=== PATIENT | female | born 1975 | race Caucasian/White ===

== ENCOUNTER 2018-05-31 10:59 | Emergency (ER) | payer MEDICAID ==
[~2018-05-31] VITALS: Ht 162.6 cm; Wt 95.3 kg
[2018-05-31 11:08] VITALS: BP 143/93
--- NOTE | 2018-05-31 11:09 | NUR ---
PT AMBULATED TO ER BED 05
--- NOTE | 2018-05-31 11:23 | NUR ---
42 yo f bib self w/ c/o llq sharp pain, non radiating x yesterday denies n/v/d, no dysuria. denies fever/chills. reports eating/drinking without issue. aaox4. gcs 15. cms intact, rr even and unlabored. lungs clear. abd soft, non-tender to the touch. er md notified. pt needs met. safety precautions inplace. will continue to monitor.
[2018-05-31] MEDS ORDERED: GLYCOPYRROLATE 0.2 MG/ML VIAL IM ONE (11:25)
[2018-05-31] MEDS ORDERED: MORPHINE SULFATE 2 MG/ML SYR IM ONE (11:25)
[2018-05-31] MEDS ORDERED: LACTULOSE 20 GM/30 ML UDC PO ONE (11:25)
--- NOTE | 2018-05-31 11:50 | NUR ---
pt taken to xray at this time via w/c accompanied by 2x safe technician without incident.
--- NOTE | 2018-05-31 12:01 | NUR ---
pt back from xray at this time.
--- NOTE | 2018-05-31 12:08 | NUR ---
pt up for d/c at this time, but labs still need to be drawn. lab called. pt to be d/c after draw. will continue to monitor. safety precautions in place.
[2018-05-31 12:22] LABS: APPEARANCE,URINE CLEAR (CLEAR); BILIRUBIN,URINE NEGATIVE (NEGATIVE); BLOOD, URINE TRACE-I (NEGATIVE); COLOR,URINE YELLOW (YELLOW); LEUKOCYTE ESTERASE ,URINE NEGATIVE (NEGATIVE); NITRITE, URINE NEGATIVE (NEGATIVE); PH,URINE 5.5 (5.0-9.0); UGLUCOSE NEGATIVE (NEGATIVE)
[2018-05-31 12:29] LABS: RBC,URINE 3-10 (FEW) /HPF (0-5); WBC,URINE 6-15 (FEW) /HPF (0-5)
[2018-05-31] MEDS ORDERED: PROMETHAZINE 25 MG/ML VIAL IM ONE (12:30)
[2018-05-31 12:43] LABS: BARBITURATE, URINE NEG. ng/ml (NEG <=200); BENZODIAZEPINE, URINE NEG. ng/mL (NEG <=200); CANNABINOID, URINE NEG. ng/mL (NEG <=50); COCAINE, URINE NEG. ng/mL (NEG <=300); OPIATE, URINE NEG. ng/mL (NEG <=2000); PHENCYCLIDINE SCREEN,URINE NEG. ng/mL (NEG <=25)
--- NOTE | 2018-05-31 12:48 | NUR ---
Patient discharged with v/s stable, blood pressure elevated, but patient reports that is her normal to baseline. Denies dizziness. Written and verbal after care instructions given and explained. Patient alert, oriented and verbalized understanding of instructions. Ambulatory with steady gait. All questions addressed prior to discharge. ID band removed. Patient advised to follow up with PMD. Rx of Levaquin, Colace, and Fioricet given. Patient educated on indication of medication including possible reaction and side effects. Opportunity to ask questions provided and answered.
[2018-05-31 12:49] VITALS: BP 144/98
== END 2018-05-31 12:48 | disposition home or self-care (01) ==
LOC: MED 10:59
DX: N23 Unspecified renal colic (principal); N39.0 Urinary tract infection, site not specified; K59.00 Constipation, unspecified; I10 Essential (primary) hypertension; Z88.6 Allergy status to analgesic agent; Z83.3 Family history of diabetes mellitus; Z98.51 Tubal ligation status
CPT/HCPCS: 74018; 80305; 81001; 81025; 87086; 96372; 99285; J2270; J2550; J3490

== ENCOUNTER 2024-04-10 17:37 | Emergency (ER) | payer MEDICAID, OTHER ==
[~2024-04-10] VITALS: Ht 162.6 cm; Wt 99.8 kg
[2024-04-10 17:43] VITALS: BP 151/93; PULSE 102; RESP 18; TEMP 96.9; O2SAT 98
[2024-04-10 18:46] LABS: BASOPHILS # (AUTO) 0.1 K/uL (0.00-0.22); BASOPHILS % (AUTO) 1.5 % (0.0-2.0); EOSINOPHILS # (AUTO) 0.2 K/uL (0-0.4); EOSINOPHILS % (AUTO) 2.5 % (0.0-4.0); HEMATOCRIT 39.1 % (36-48); HEMOGLOBIN 13.1 g/dL (12.0-16.0); LYMPHOCYTES # (AUTO) 2.1 K/uL (2.5-16.5); LYMPHOCYTES % (AUTO) 25.7 % (20.5-51.1); MEAN CORPUSCULAR HEMOGLOBIN 27 pg (27-31); MEAN CORPUSCULAR HGB CONC 34 g/dL (33-37); MEAN CORPUSCULAR VOLUME 80.1 fL (80-94); MONOCYTES # (AUTO) 0.6 K/uL (0.8-1.0); MONOCYTES % (AUTO) 7.2 % (1.7-9.3); NEUTROPHILS # (AUTO) 5.2 K/uL (1.8-7.7); NEUTROPHILS % (AUTO) 63.1 % (42.2-75.2); PLATELET COUNT (AUTO) 284 K/uL (140-450); RED BLOOD CELL COUNT(AUTO) 4.88 MIL/uL (4.20-5.40); RED CELL DISTRIBUTION WIDTH 15.2 % (11.6-13.7); WHITE BLOOD COUNT (AUTO) 8.3 K/uL (4.8-10.8)
[2024-04-10 19:21] LABS: ANION GAP 12.4 (8-16); CALCIUM 8.9 mg/dL (8.5-10.1); CREATININE 0.8 mg/dL (0.6-1.3); POTASSIUM 3.4 mmol/L (3.5-5.1)
[2024-04-10 19:54] LABS: APPEARANCE,URINE CLEAR (CLEAR); BILIRUBIN,URINE NEGATIVE (NEGATIVE); BLOOD, URINE NEGATIVE (NEGATIVE); COLOR,URINE YELLOW (YELLOW); LEUKOCYTE ESTERASE ,URINE TRACE (NEGATIVE); NITRITE, URINE NEGATIVE (NEGATIVE); PROTEIN,URINE NEGATIVE (NEGATIVE); UGLUCOSE NEGATIVE (NEGATIVE); UROBILINOGEN,URINE 0.2 EU/dL (0.2 - 1)
[2024-04-10] MEDS ORDERED: IBUP-2213 PO (20:04)
[2024-04-10] MEDS ORDERED: ACET-8905 PO (20:04)
[2024-04-10 20:20] VITALS: BP 150/93; PULSE 83; RESP 16; TEMP 96.9; O2SAT 97
== END 2024-04-10 20:20 | disposition home or self-care (01) ==
LOC: MED 17:37
DX: R51.9 Headache, unspecified (principal); M54.2 Cervicalgia; I10 Essential (primary) hypertension; Z79.82 Long term (current) use of aspirin; Z90.49 Acquired absence of other specified parts of digestive tract
CPT/HCPCS: 36415; 80048; 81003; 81025; 85025; 99283